=== PATIENT | female | born 1995 | race Caucasian/White ===

== ENCOUNTER 2018-12-25 13:39 | Outpatient (CLI) | payer BC ==
--- NOTE | 2018-12-25 15:05 | ULT ---
OB ULTRASOUND: 12/25/18 HISTORY: anatomy. A single live intrauterine gestation is seen with measurements corresponding to an estimated gestatio nal age of 22 weeks, 1 day and DANIELLE at 04/29/2019. The estimated weight measures 488 grams or 1.1 oz (98th percentile by Hadlock criteria). measurements are as follows: BPD 5.17 cm 20 weeks, 5 days HC 10.62 cm 21 weeks, 6 days AC 17.16 cm 22 weeks, 1 day FL 3.91 cm 22 weeks, 4 days heart rate measures 148 beats per minute. Placenta is anteriorly located without evidence of pl acenta previa. The IVONNE measures 13.8 cm. A three vessel cord, cord insertion, kidneys, bladder, stomach, four chamber heart, lateral zeferino tricles, cerebellum, spleen, lips/nose, upper and lower extremities are visualized. No definite feta l anomalies are seen. IMPRESSION: Single live IUP of 22 weeks, 1 day and DANIELLE at 04/29/2019. POS: [facility]
== END 2018-12-25 13:40 | disposition home or self-care (01) ==
LOC: BICULT 13:39
PROVIDERS: ATTEND Family Medicine
DX: Z34.02 Encounter for supervision of normal first pregnancy, second trimester (principal); Z3A.22 22 weeks gestation of pregnancy
CPT/HCPCS: 76805

== ENCOUNTER 2019-05-02 06:37 | Inpatient (IN) | payer BC, OTHER ==
[2019-05-02] MEDS ORDERED: hydrALAZINE 20 MG/ML VIAL SLOW IVP PRN ×3 (07:42→22:49)
[2019-05-02] MEDS ORDERED: Methylergonovine 0.2 MG/ML VIAL IM PRN (09:14)
[2019-05-02] MEDS ORDERED: NS / Oxytocin 40 units/1000ml 1,000 ML IV PRN (09:14)
[2019-05-02] MEDS ORDERED: Bupivacaine/Epinephrine 0.25% 30 ML VIAL ONE (09:14)
[2019-05-02] MEDS ORDERED: Butorphanol Tartrate 1 MG/ML VIAL SLOW IVP PRN (09:14)
[2019-05-02] MEDS ORDERED: Misoprostol 200 MCG TAB PR PRN (09:14)
[2019-05-02] MEDS ORDERED: Lidocaine 1% (PF) 30 ML VIAL SC PRN (09:14)
[2019-05-02] MEDS ORDERED: Ondansetron PF 4 MG/2 ML Vial IVP PRN ×3 (09:14→22:49)
[2019-05-02] MEDS ORDERED: Promethazine HCl 25 MG/ML VIAL IM PRN ×3 (09:14→22:49)
[2019-05-02] MEDS ORDERED: Ibuprofen 800 MG TAB PO PRN (09:14)
[2019-05-02] MEDS ORDERED: HYDROcodone/Acetaminophen 5/325 mg Tablet PO PRN ×4 (09:14→22:49)
[2019-05-02] MEDS ORDERED: Diphenoxylate HCl/Atropine Tablet PO PRN ×2 (09:14)
[2019-05-02] MEDS ORDERED: Acetaminophen 500 MG TAB PO PRN (09:14)
[2019-05-02] MEDS ORDERED: Carboprost 250 MCG/ML AMP IM PRN (09:14)
--- NOTE | 2019-05-02 09:16 | PDOC.BPN ---
- Brief Progress Note Patient returned , change from previous exam. Admit for labor.
[2019-05-02 09:42] VITALS: BMI 31.6
[2019-05-02 09:59] LABS: Hemoglobin 14.1 g/dL (12.0-16.0); Mean Corpuscular HGB CONC 32.5 g/dL (32.0-36.0); Mean Corpuscular Hemoglobin 27.4 pg (27.0-31.0); Mean Corpuscular Volume 84.4 fL (78.0-98.0); Mean Platelet Volume 11.4 fL (7.4-10.4); Platelet Count 152 thou/uL (130-400); RBC Distribution Width 13.6 % (11.5-14.5); Red Blood Cell (RBC) Count 5.15 mill/uL (4.20-5.40); White Blood Cell (WBC) Count 10.3 thou/uL (4.8-10.8)
[2019-05-02] MEDS: Lactated Ringer's 1,000 ML IV SCH ×2 (10:25→12:02)
[2019-05-02 10:52] LABS: HBSAg Index 0.15 S/CO (0-0.99); Hep B Surf Ag Non-Reactive S/CO (NonReactive)
--- NOTE | 2019-05-02 11:04 | PDOC.BPN ---
- Brief Progress Note AROM clear fluid / Continue current management.
[2019-05-02 12:03] LABS: Syphilis Antibody Nonreactive (Nonreactive); Syphilis Antibody Index 0.02 S/CO (<1.00 Non-Reactive)
[2019-05-02] MEDS ORDERED: NS w/ Oxytocin 10 units 500 ML ONE (13:15)
[2019-05-02] MEDS ORDERED: Fentanyl 4 mcg/Bup 0.1% Cadd 100 ML ONE (14:05)
--- NOTE | 2019-05-02 14:07 | HP ---
LABOR AND DELIVERY TRIAGE NOTE REGULAR PHYSICIAN: Juarez Pickard MD EVALUATING PHYSICIAN: Hernandez Garcia MD CHIEF COMPLAINT: Contractions at home. HISTORY OF PRESENT ILLNESS: Ms. Los Georges is a 23-year-old G1, P0, with an estimated date of confinement of 05/11/2019, who presents complaining of uterine contractions since early this morning. She denies ruptured membranes or vaginal bleeding. Her care has been with Dr. Pickard. She states she was 3 cm in the office earlier this week. PAST MEDICAL HISTORY: None. PAST SURGICAL HISTORY: None. CURRENT MEDICATIONS: vitamins. ALLERGIES: NO KNOWN ALLERGIES. SOCIAL HISTORY: Denies tobacco, alcohol, or drug use. FAMILY HISTORY: Unremarkable. REVIEW OF SYSTEMS: Denies nausea, vomiting, fever, chills, ruptured membranes, or vaginal bleeding. PHYSICAL EXAMINATION: VITAL SIGNS: In triage, her vital signs are stable and she is afebrile. GENERAL: She is pleasant. ABDOMEN: Soft, nontender, and gravid. PELVIC: Pelvic exam by labor nurse in triage shows the cervix to be 3 cm dilated, 70% effaced with a vertex presenting. heart rate tracing is stable. No decelerations are seen. Uterine contractions which are moderate are every 2 to 4 minutes. ASSESSMENT: 1. 38-week intrauterine . 2. Rule out active labor. PLAN: The patient will be allowed to walk. She will be rechecked in 1 to 2 hours for cervical change. I will discuss this patient with Dr. Griffith who is coming on this morning. Job ID: [id number]
[2019-05-02] MEDS ORDERED: EPHEDRINE 25 MG/5 ML SYRINGE SLOW IVP PRN (14:42)
[2019-05-02] MEDS ORDERED: diphenhydrAMINE 50 MG/ML VIAL IVP PRN (14:42)
[2019-05-02] MEDS ORDERED: Lactated Ringer's 500 ML IV PRN (14:42)
[2019-05-02] MEDS ORDERED: Naloxone HCl 0.4 mg/ml Vial IVP PRN ×2 (14:42)
[2019-05-02] MEDS ORDERED: Acetaminophen 325 MG TAB PO PRN (14:42)
[2019-05-02] MEDS ORDERED: Fentanyl 4 mcg/Bupivacaine 0.1% Cassette 100 ML EPIDURAL SCH (14:45)
[2019-05-02] MEDS ORDERED: Communication Order-Pharmacy FS SCH (14:45)
--- NOTE | 2019-05-02 19:44 | OP ---
DATE OF PROCEDURE: 05/02/2019 DESCRIPTION EVENTS: A 23-year-old female, G1, P0, now P1 of a viable female infant on 05/02/2019 at 6:45 p.m. This female delivered in OA presentation over a left mediolateral episiotomy done for heart tones and lacerations with pushing. A nuchal cord x1 was encountered and reduced easily. The remainder of the infant delivered uneventfully without difficulties. The cord was clamped x2 and cut, and a vigorous female infant placed on the maternal chest. Cord blood was obtained. Placenta delivered spontaneously intact. Three-vessel cord was noted. Episiotomy was repaired with 2-0 Vicryl in the usual fashion. A small first-degree midline laceration was repaired with 3-0 Vicryl. Infant Apgars were 9 and 9 at 1 and 5 minutes respectively. ESTIMATED BLOOD LOSS: 300 mL. Job ID: [id number]
[2019-05-02] MEDS ORDERED: Benzocaine-Menthol 82.5 ML CAN TOP PRN (22:49)
[2019-05-02] MEDS ORDERED: Milk Of Magnesia 30 ML UDCUP PO PRN (22:49)
[2019-05-02] MEDS ORDERED: Preparation H Ointment 28 GM TUBE PR PRN (22:49)
[2019-05-02] MEDS ORDERED: diphenhydrAMINE 25 MG CAP PO PRN (22:49)
[2019-05-02] MEDS ORDERED: Bisacodyl 10 MG SUPP PR PRN (22:49)
[2019-05-02] MEDS ORDERED: Lanolin Ointment 7 GM TUBE TOP PRN (22:49)
[2019-05-02] MEDS ORDERED: NS / Oxytocin 40 units/1000ml 1,000 ML IV SCH (22:49)
[2019-05-02] MEDS ORDERED: Docusate Calcium (SURFAK) 240 MG CAP PO SCH (23:00)
[2019-05-02] MEDS ORDERED: Ibuprofen 800 MG TAB PO SCH (23:00)
[2019-05-03 07:28] LABS: Hemoglobin 11.5 g/dL (12.0-16.0); Mean Corpuscular HGB CONC 30.6 g/dL (32.0-36.0); Mean Corpuscular Hemoglobin 27.2 pg (27.0-31.0); Mean Corpuscular Volume 89.1 fL (78.0-98.0); Mean Platelet Volume 8.4 fL (7.4-10.4); Platelet Count 123 thou/uL (130-400); RBC Distribution Width 14.7 % (11.5-14.5); Red Blood Cell (RBC) Count 4.23 mill/uL (4.20-5.40); White Blood Cell (WBC) Count 12.4 thou/uL (4.8-10.8)
[2019-05-03] MEDS ORDERED: Adacel (T-DAP) 0.5 ML SYRINGE IM ONE (09:00)
[2019-05-03] MEDS: Ibuprofen 800 MG TAB PO SCH ×2 (09:33→16:41)
[2019-05-03] MEDS: Docusate Calcium (SURFAK) 240 MG CAP PO SCH ×2 (09:33→21:46)
[2019-05-03] MEDS: Prenatal Vitamin 1 TAB PO SCH (09:33)
[2019-05-03] MEDS: Ferrous Sulfate 325 MG TAB PO SCH ×2 (09:34→16:41)
[2019-05-04] MEDS: Ibuprofen 800 MG TAB PO SCH ×2 (00:50→09:37)
[2019-05-04] MEDS: Ferrous Sulfate 325 MG TAB PO SCH (07:30)
[2019-05-04] MEDS: Docusate Calcium (SURFAK) 240 MG CAP PO SCH (09:37)
[2019-05-04] MEDS: Prenatal Vitamin 1 TAB PO SCH (09:37)
[2019-05-04 10:27] VITALS: BP 118/65; TEMP 98.1
== END 2019-05-04 17:25 | disposition home or self-care (01) | DRG 807 ==
LOC: L&D/OP 06:37 → L&D 10:07 → 3SW 22:48
PROVIDERS: ADMIT Family Medicine; ATTEND Family Medicine
PROC: 10E0XZZ Delivery of Products of Conception, External Approach (ICD-10-PCS; principal; 2019-05-02)
PROC: 10907ZC Drainage of Amniotic Fluid, Therapeutic from Products of Conception, Via Natural or Artificial Opening (ICD-10-PCS; 2019-05-02)
PROC: 0W8NXZZ Division of Female Perineum, External Approach (ICD-10-PCS; 2019-05-02)
DX: O69.81X0 Labor and delivery complicated by cord around neck, without compression, not applicable or unspecified (principal); Z37.0 Single live birth; Z3A.38 38 weeks gestation of pregnancy
CPT/HCPCS: 36415; 51702; 85027; 86780; 86850; 86900; 86901; 87340; 99285; J0595; J2590

== ENCOUNTER → 2022-03-10 | Emergency (ER) | payer BC, OTHER ==
[~2022-03-10] MED LIST: Dicyclomine 20 MG TAB ONE; Ondansetron ODT 4 MG TAB ONE
[2022-03-10 09:04] LABS: Bilirubin Negative (Negative); Blood, Urine Negative (Negative); Clarity Clear (Clear); Glucose, Urine (Dipstick) Normal (Negative); Ketone, Urine Negative (Negative); Leukocyte Negative Leu/uL (Negative); Nitrite Negative (Negative); Protein, Urine (Dipstick) Negative (Neg-Trace); Specific Gravity, Urine 1.021 (1.002-1.036); Urobilinogen Normal mg/dL (Less than 2); pH, Urine 5.5 (5.0-9.0)
[2022-03-10 09:07] LABS: Pregnancy Test - Urine (BHCG) Negative (Negative); Pregu Control Background? CLEAR/WHITE (CLR/WHITE); Pregu Control Bar Appear? YES (CONTROL BAR); Specific Gravity 1.021 (1.002-1.036)
[2022-03-10 09:21] LABS: #Basophils 0.1 thou/uL (0.0-0.2); #Monocytes 0.3 thou/uL (0.11-0.59); #Neutrophils 4.9 thou/uL (1.40-6.50); %Basophils 0.7 % (0.0-1.0); %Eosinophils 0.7 % (0.0-10.0); %Lymphocytes 27.5 % (21.0-51.0); Hemoglobin 14.8 g/dL (12.0-16.0); Mean Corpuscular HGB CONC 33.6 g/dL (32.0-36.0); Mean Corpuscular Hemoglobin 28.4 pg (27.0-31.0); Mean Corpuscular Volume 84.5 fl (78.0-98.0); Mean Platelet Volume 9.8 fL (7.4-10.4); Platelet Count 223 10x3/uL (130-400); RBC Distribution Width 11.7 % (11.5-14.5); White Blood Cell (WBC) Count 7.4 10x3/uL (4.8-10.8)
[2022-03-10 09:40] LABS: ALT (SGPT) 21 U/L (8-55); AST (SGOT) 16 U/L (5-34); Albumin 4.3 g/dL (3.5-5.0); Alkaline Phosphatase 125 U/L (40-110); Anion Gap 12 mmol/L (10-20); BUN (Urea Nitrogen) 7 mg/dL (7.0-18.7); Bilirubin, Total 0.3 mg/dL (0.2-1.2); Calc. Creatinine Clearance 0 mL/min (70-130); Calcium 9.1 mg/dL (7.8-10.44); Carbon Dioxide 21 mmol/L (22-29); Chloride 108 mmol/L (98-107); Estimated GFR 125; Globulin 3.1 g/dL (2.4-3.5); Glucose 93 mg/dL (70-105); Lipase 24 U/L (8-78); Potassium 3.8 mmol/L (3.5-5.1); Protein, Total 7.4 g/dL (6.0-8.3); Sodium 137 mmol/L (136-145)
== END ==
LOC: ERS 08:29
DX: K52.9 Noninfective gastroenteritis and colitis, unspecified (principal)
CPT/HCPCS: 36415; 80053; 81003; 81025; 83690; 85025; 99284; Q0162

== ENCOUNTER 2023-03-05 19:23 | Emergency (ER) | payer BC, OTHER ==
[2023-03-05 22:50] LABS: SARS-CoV-2 NAA Rapid Test Not Detected (NotDetected)
== END 2023-03-05 21:32 | disposition home or self-care (01) ==
LOC: ERS 19:23
DX: J01.90 Acute sinusitis, unspecified (principal)
CPT/HCPCS: 87081; 87430; 99283